=== PATIENT | male | born 1960 | race Caucasian/White ===

== ENCOUNTER 2017-12-15 11:10 | Outpatient (RCR) | payer OTHER, SELFPAY ==
--- NOTE | 2017-12-15 11:54 | PT.OIE ---
Current Diagnoses Other specified enthesopathies of left lower limb, excluding foot (12/15/17) Past Medical History (Last Updated 12/12/17 @ 12:13 by Thi Hanson LPN) Chronic back pain (Chronic 1999) Osteoarthritis (Chronic Unknown) Shingles (Chronic 1974) Chickenpox (Resolved 1963) Foot pain (Resolved 1998) Fractures (Resolved 1998) Hemorrhoids (Resolved 2005) Skin cancer (Resolved 2004) Tuberculosis (Resolved 2003) Herpes (Inactive 1975) Past Surgical History History of hip replacement Status post knee surgery Provider Visit Care Team Role Provider Type Manuel Watson MD Family Provider Physician Primary Care Provider Specialty: Family Practice Address: [address] [place] [address], [id number] Email: [email or web address] James Gallo PA-C Attending Provider Non-Staff Specialty: Nursing Address: [address] [place] [address], [id number] Email: Physical Therapy Initial Evaluation PT-OP-A Visit Information Start: 12/15/17 11:35 Freq: Status: Active Protocol: Document 12/15/17 11:15 DCW (Rec: 12/15/17 11:54 [facility] [id number]) Out-Patient Physical Therapy Visit Information Visit Information Visit Type Initial Evaluation Visit Start Time 11:15 Visit Stop Time 11:40 Total Visit Minutes 25 Visit Number 1 Number of ABRASIVE WORKER Visits 0 Evaluation Information Evaluation Date 12/15/17 PT-OP-B Current Condition Start: 12/15/17 11:35 Freq: Status: Active Protocol: Document 12/15/17 11:15 DCW (Rec: 12/15/17 11:54 [facility] [id number]) Current Condition History of Current Condition Onset Date s/p 6 weeks Current Complaints Mild hip flexor pain History of Current Condition Pt reports after spending September in [place], he returned at the beginning of October. Shortly after coming back to [place], he reports he had a flare-up, and was experiencing severe 6-7/10 pain in his anterior left hip. Pt reports he struggled to even stand, and after washing his car one day, needed a cane to walk back. Following a doctor's appointment last week , pt was put on Meloxicam, and after taking three doses, pt notes he had a vague bad reaction, and stopped taking it. However, he notes that since that time, he has felt much better, has only been experiencing an occasional 1-2 /10 pain, and now doesn't feel he really need any physical therapy. Treatment Goals Patient/Caregiver Goals If I don't need to be here, I really rather not be here. Prior Functional Status Baseline Function- ADL's Independent Baseline Function- Mobility Independent Current Functional Impairments (Reported) Functional Limitations- ADL's None Functional Limitations- Mobility/Gait None Functional Limitations- Work/School None PT-OP-C Subjective Start: 12/15/17 11:35 Freq: Status: Active Protocol: Document 12/15/17 11:15 DCW (Rec: 12/15/17 11:54 [facility] [id number]) OP-PT Subjective Patient Comments Patient Comments I'm not sure I really need this anymore. Patient Reported Progress Improving Patient Questionnaires Lower Extremity Functional Scale LEFS Score 58/80 = 72.5% LEFS Impairment 20 to 39% Impaired (Score 48- 62) OP-PT Pain Assessment Pain Assessment Grid Paper Pain Assessment Grid Completed Yes Location Left Anterior Lateral Hip Intensity 1 Scale Used Numeric (1 - 10) Frequency Occasional PT-OP-F Manual Assessment Start: 12/15/17 11:35 Freq: Status: Active Protocol: Document 12/15/17 11:15 DCW (Rec: 12/15/17 11:54 [facility] [id number]) Manual Assessments Soft Tissue Assessment Soft Tissue Mobility Assessment Tenderness to palpation: Iliopsoas bilaterally 1/5 - Complaint of pain. No notable spasm, trigger points, or hypertonia. Joint Mobility Assessment Joint Mobility Assessment WNL PT-OP-K Range of Motion Start: 12/15/17 11:35 Freq: Status: Active Protocol: Document 12/15/17 11:15 DCW (Rec: 12/15/17 11:54 [facility] [id number]) Hip Goniometric Range of Motion Hip Measured in Degrees Left Active Hip ROM WFL Yes Testing Position Supine PT-OP-L Special Tests Start: 12/15/17 11:35 Freq: Status: Active Protocol: Document 12/15/17 11:15 DCW (Rec: 12/15/17 11:54 [facility] [id number]) Special Tests Hip Special Tests Tripod Sign Test Results Mild HS tightness Piriformis Test Results Negative BRITANY Test Results Negative Max Test Results Mild left hip flexor tightness PT-OP-M Strength Start: 12/15/17 11:35 Freq: Status: Active Protocol: Document 12/15/17 11:15 DCW (Rec: 12/15/17 11:54 [facility] [id number]) Hip Strength Hip Manual Muscle Testing Left Flexion (L2) 5 Normal Extension (S1) 5 Normal Abduction 5 Normal Adduction 5 Normal Comments Mild complaint of discomfort with resisted hip flexion PT-OP-Q Treatments Start: 12/15/17 11:35 Freq: Status: Active Protocol: Document 12/15/17 11:15 DCW (Rec: 12/15/17 11:54 [facility] [id number]) Therapeutic Exercises Supine Exercises 1 Supine Exercise Name Hip flexor stretch off plinth Side left Standing Exercises 1 Standing Exercise Name Hip flexor stretch half-kneel on plinth Side left PT-OP-T Assessment and Plan Start: 12/15/17 11:35 Freq: Status: Active Protocol: Document 12/15/17 11:15 DCW (Rec: 12/15/17 11:54 [facility] [id number]) Physical Therapy Assessment Rehab Potential Rehabilitation Potential Excellent Evaluation Complexity Number of Personal Factors/Comorbidities 1-2 Number of Body Systems Impaired 1-2 Clinical Presentation at Evaluation Stable Impairments Impairments Pain Soft Tissue Mobility Goals Two Impairment Max Test Short Term Goal (STG) Negative Max test STG Duration 12/29/17 One Impairment Pain Short Term Goal (STG) Pt to report no increased pain at work STG Duration 12/29/17 Assessment Summary Assessment Patient is currently doing very well, has no real complaints compared to last week when he saw his PCP. Pt hip ROM and MMT are grossly WNL, and pt experiences minimal pain and has no current limitations. At the moment, there is no real need for continued skilled therapy. Pt agreeable to cancel the remainder of his scheduled appointments, but will not be discharged at this time. Pt's chart will remain open for one month in case he notes worsening symptoms and would like to return. Physical Therapy Plan Frequency and Duration Frequency of Treatment 2x/Week Duration of Treatment 6 weeks Plan of Care Start Date 06/04/18 Plan of Care End Date 01/26/18 Therapeutic Interventions Therapeutic Interventions Aquatic Therapy Balance Training Home Exercise Program Joint Mobilizations Manual Therapy Soft Tissue Mobilization Therapeutic Exercises Modalities Cold Pack/Ice Massage Electric Stimulation Hot Packs Ultrasound Next Visit Focus/Plan Next Note Type Treatment Note Next Visit Plan Flexibility, US, strengthening , Pain-control as needed Please Sign and Return: I have reviewed this Plan of Care and certify that the skilled therapy services above are required to meet the patient?s needs. Physician Signature Date Printed Name and Credentials Clinical Instructor Signature Printed Name and Credentials
--- NOTE | 2017-12-15 11:55 | PT.OPPOC ---
Current Diagnoses Other specified enthesopathies of left lower limb, excluding foot (12/15/17) Provider Visit Care Team Role Provider Type Manuel Watson MD Family Provider Physician Primary Care Provider Specialty: Family Practice Address: [address] [place] [address], [address] Email: [email or web address] James Gallo PA-C Attending Provider Non-Staff Specialty: Nursing Address: [address] [place] [address], [id number] Email: Plan Of Care PT-OP-T Assessment and Plan Start: 12/15/17 11:35 Freq: Status: Active Protocol: Document 12/15/17 11:15 DCW (Rec: 12/15/17 11:54 [facility] [id number]) Physical Therapy Assessment Rehab Potential Rehabilitation Potential Excellent Evaluation Complexity Number of Personal Factors/Comorbidities 1-2 Number of Body Systems Impaired 1-2 Clinical Presentation at Evaluation Stable Impairments Impairments Pain Soft Tissue Mobility Goals Two Impairment Max Test Short Term Goal (STG) Negative Max test STG Duration 12/29/17 One Impairment Pain Short Term Goal (STG) Pt to report no increased pain at work STG Duration 12/29/17 Assessment Summary Assessment Patient is currently doing very well, has no real complaints compared to last week when he saw his PCP. Pt hip ROM and MMT are grossly WNL, and pt experiences minimal pain and has no current limitations. At the moment, there is no real need for continued skilled therapy. Pt agreeable to cancel the remainder of his scheduled appointments, but will not be discharged at this time. Pt's chart will remain open for one month in case he notes worsening symptoms and would like to return. Physical Therapy Plan Frequency and Duration Frequency of Treatment 2x/Week Duration of Treatment 6 weeks Plan of Care Start Date 12/15/17 Plan of Care End Date 01/26/18 Therapeutic Interventions Therapeutic Interventions Aquatic Therapy Balance Training Home Exercise Program Joint Mobilizations Manual Therapy Soft Tissue Mobilization Therapeutic Exercises Modalities Cold Pack/Ice Massage Electric Stimulation Hot Packs Ultrasound Next Visit Focus/Plan Next Note Type Treatment Note Next Visit Plan Flexibility, US, strengthening , Pain-control as needed Plan of Care Dates Plan of Care Start Date 12/15/17 Plan of Care End Date 01/26/18 Please Sign and Return: I have reviewed this Plan of Care and certify that the skilled therapy services above are required to meet the patient?s needs. Physician Signature Date Printed Name and Credentials Clinical Instructor Signature Printed Name and Credentials
--- NOTE | 2018-04-20 11:38 | PT.OPDS ---
Current Diagnoses Other specified enthesopathies of left lower limb, excluding foot (12/15/17) Provider Visit Care Team Role Provider Type Manuel Watson MD Family Provider Physician Primary Care Provider Specialty: Family Practice Address: [address] [place] [address], [id number] Email: [email or web address] Gallo [email or web address] Attending Provider Non-Staff Specialty: Nursing Address: [address] [place] [address], [id number] Email: Visit Number Visit Number 1 Discharge Summary PT-OP-B Current Condition Start: 12/15/17 11:35 Freq: Status: Active Protocol: Document 12/15/17 11:15 DCW (Rec: 12/15/17 11:54 DCW [id number]) Current Condition History of Current Condition Onset Date s/p 6 weeks Current Complaints Mild hip flexor pain History of Current Condition Pt reports after spending September in [place], he returned at the beginning of October. Shortly after coming back to [place], he reports he had a flare-up, and was experiencing severe 6-7/10 pain in his anterior left hip. Pt reports he struggled to even stand, and after washing his car one day, needed a cane to walk back. Following a doctor's appointment last week , pt was put on Meloxicam, and after taking three doses, pt notes he had a vague bad reaction, and stopped taking it. However, he notes that since that time, he has felt much better, has only been experiencing an occasional 1-2 /10 pain, and now doesn't feel he really need any physical therapy. Treatment Goals Patient/Caregiver Goals If I don't need to be here, I really rather not be here. Prior Functional Status Baseline Function- ADL's Independent Baseline Function- Mobility Independent Current Functional Impairments (Reported) Functional Limitations- ADL's None Functional Limitations- Mobility/Gait None Functional Limitations- Work/School None PT-OP-C Subjective Start: 12/15/17 11:35 Freq: Status: Active Protocol: Document 12/15/17 11:15 DCW (Rec: 12/15/17 11:54 DCW [id number]) OP-PT Subjective Patient Comments Patient Comments I'm not sure I really need this anymore. Patient Reported Progress Improving Patient Questionnaires Lower Extremity Functional Scale LEFS Score 58/80 = 72.5% LEFS Impairment 20 to 39% Impaired (Score 48- 62) OP-PT Pain Assessment Pain Assessment Grid Paper Pain Assessment Grid Completed Yes Location Left Anterior Lateral Hip Intensity 1 Scale Used Numeric (1 - 10) Frequency Occasional PT-OP-F Manual Assessment Start: 12/15/17 11:35 Freq: Status: Active Protocol: Document 12/15/17 11:15 DCW (Rec: 12/15/17 11:54 DCW [id number]) Manual Assessments Soft Tissue Assessment Soft Tissue Mobility Assessment Tenderness to palpation: Iliopsoas bilaterally 1/5 - Complaint of pain. No noteable spasm, triggerpoints, or hypertonia. Joint Mobility Assessment Joint Mobility Assessment WNL PT-OP-K Range of Motion Start: 12/15/17 11:35 Freq: Status: Active Protocol: Document 12/15/17 11:15 DCW (Rec: 12/15/17 11:54 DCW [id number]) Hip Goniometric Range of Motion Hip Measured in Degrees Left Active Hip ROM WFL Yes Testing Position Supine PT-OP-L Special Tests Start: 12/15/17 11:35 Freq: Status: Active Protocol: Document 12/15/17 11:15 DCW (Rec: 12/15/17 11:54 DCW [id number]) Special Tests Hip Special Tests Tripod Sign Test Results Mild HS tightness Piriformis Test Results Negative BRITANY Test Results Negative Max Test Results Mild left hip flexor tightness PT-OP-M Strength Start: 12/15/17 11:35 Freq: Status: Active Protocol: Document 12/15/17 11:15 DCW (Rec: 12/15/17 11:54 DCW [id number]) Hip Strength Hip Manual Muscle Testing Left Flexion (L2) 5 Normal Extension (S1) 5 Normal Abduction 5 Normal Adduction 5 Normal Comments Mild complaint of discomfort with resisted hip flexion PT-OP-T Assessment and Plan Start: 12/15/17 11:35 Freq: Status: Active Protocol: Document 04/20/18 11:36 DCW (Rec: 04/20/18 11:38 DCW [id number]) Physical Therapy Assessment Goals Two Impairment Max Test Short Term Goal (STG) Negative Max test STG Duration 12/29/17 One Impairment Pain Short Term Goal (STG) Pt to report no increased pain at work STG Duration 12/29/17 Physical Therapy Plan Discharge Physical Therapy Discharge Reasons No Longer Attending PT Discharge Comments Pt was doing very well at ths time of his evaluation, but his chart was left open if he happened to decline in function again. Pt was instructed to schedule an appointment if he required any further assistance. Pt has now, however, not been seen in more than four months, and will be discharged from skilled therapy
== END 2018-04-23 15:16 ==
LOC: PHYS 11:10
PROVIDERS: Family Provider Family Medicine; PCP Family Medicine; Visit Provider Physician Assistant Surgical
DX: M76.892 Other specified enthesopathies of left lower limb, excluding foot (principal)
CPT/HCPCS: 97161

== ENCOUNTER 2018-04-20 06:25 | Day surgery (SDC) | payer OTHER, SELFPAY ==
--- NOTE | 2018-04-20 | PATH_ITS ---
[facility] Accession Number: [id number] . 01 Material submitted: . PART A: SIGMOID COLON POLYPS X3 AT 20 PART B: TRANSVERSE COLON POLYP PART C: RECTAL POLYP AT 10 X2 . 01 Clinical history: . B: PREVIOUSLY INKED AT 58 . 02 Diagnosis: A. 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 Hyperplastic polyp involving single biopsy fragment. . B. Biopsy Transverse Colon Polyp: Serrated polyp, favor hyperplastic, involving all three biopsy specimens. . C. Biopsy Rectal Polyp at 10 cm: Hyperplastic polyp involving two biopsy fragments. [facility]/04/21/2018 . 02 Electronically signed: . Archie Roberts MD, Pathologist NPI- [id number] . 01 Gross description: . Received three formalin-filled containers each labeled with the patient's name. . A. In a container labeled polyps x3 sigmoid at 20 are three 0.2 to 0.6 cm portions of tissue. Entirely submitted in cassette A. B. In a container labeled transverse colon polyp previously at 58 inked are three 0.1 to 0.4 cm portions of tissue. Entirely submitted in cassette B. C. In a container labeled rectal polyp at 10 x2 are three 0.2 to 0.4 cm portions of tissue. Entirely submitted in cassette C. ([facility]:[id number]) /[facility] . 02 Pathologist provided ICD-10: D12.5 . 02 CPT . 784105, [id number], [id number] Specimen Comment: A duplicate report has been generated due to demographic updates. Performed at: [address], [place], [place] [id number] MD Randy Johnson MD Phone: [phone] Performed at: 02 [facility] [address] [place] [id number] MD Mike Guerra MD Phone: [phone]
[2018-04-20 07:08] VITALS: BP 142/96; PULSE 92; RESP 16; TEMP 36.8; O2SAT 98; BMI 29.6
[2018-04-20] MEDS: SODIUM CHLORIDE 0.9% 1,000 ML 200 ML IV (07:14)
--- NOTE | 2018-04-20 07:52 | PM.HP.1 ---
History of Present Illness Date Patient Seen: 04/20/18 Time Patient Seen: 07:52 Chief complaint: [id number] COLONOSCOPY Narrative: 58-year-old male who presents for colorectal screening. Has been 10 years since his last colonoscopy. He reports the findings were normal at that time. On further history today he denies any recent gastrointestinal symptoms. No nausea, vomiting, abdominal pain, loss of appetite, unexplained weight loss, change in bowel habits, diarrhea, constipation, melena, hematochezia, or bright red blood per rectum. Patient History Medical History Chronic back pain (Chronic 1999) Osteoarthritis (Chronic Unknown) Shingles (Chronic 1974) Chickenpox (Resolved 1963) Foot pain (Resolved 1998) Fractures (Resolved 1998) Hemorrhoids (Resolved 2005) Skin cancer (Resolved 2004) Tuberculosis (Resolved 2003) Herpes (Inactive 1975) Surgical History History of colonoscopy (Acute) History of hip replacement Status post knee surgery Family & Social History Family History: Reviewed 04/20/18 by Dionisio Decker MD Social History: household members friend(s) Tobacco & Substance use: Smoking Status Never smoker Meds Home Medications Medication Instructions Recorded Confirmed Type hydrocodone 10 mg-acetaminophen See Label Instructions PO TID PRN 03/19/18 04/20/18 Rx 325 mg tablet #50 tab Allergies Allergy/AdvReac Type Severity Reaction Status Date / Time meloxicam Allergy Severe bloody Verified 12/15/17 16:31 stool No Known Allergies Allergy Uncoded 10/22/17 12:30 Review of Systems Review of Systems All systems reviewed & are unremarkable except as noted in HPI and below Exam Vital Signs (past 8 hours): - 04/20/18 07:08 Temperature 98.2 F Pulse Rate 92 H Respiratory Rate 16 Blood Pressure 142/96 H Pulse Oximetry 98 Oxygen Delivery Method Room Air Narrative Exam Narrative: Well-nourished well-developed male in no acute distress. Alert oriented x3. Sclera nonicteric Chest clear auscultation bilaterally with regular rate and rhythm. No murmurs, gallops, rubs Abdomen soft, nondistended, nontender, no masses Extremities show no clubbing or cyanosis Objective Labs Labs: No recent laboratory or radiographic studies for review Assessment & Plan Plan: Assessment/Plan Narrative: 58-year-old male requiring colorectal screening since has been 10 years from his last examination. Colonoscopy is currently recommended. Technical details of the procedure were discussed. Risks, benefits, alternatives were explained. Risks including but not limited to sedation, aspiration, bleeding, pain, missed lesion, incomplete examination, need for further radiographic studies, colonic perforation, need for major abdominal surgery, and all attendant risks of major surgery were discussed in detail. All questions were answered to his satisfaction, and he voiced understanding. Consent was placed on the chart. We will proceed as above.
--- NOTE | 2018-04-20 07:55 | P.HP_ITS ---
History of Present Illness Date Patient Seen: 04/20/18 Time Patient Seen: 07:52 Chief complaint: [id number] COLONOSCOPY Narrative: 58-year-old male who presents for colorectal screening. Has been 10 years since his last colonoscopy. He reports the findings were normal at that time. On further history today he denies any recent gastrointestinal symptoms. No nausea, vomiting, abdominal pain, loss of appetite, unexplained weight loss , change in bowel habits, diarrhea, constipation, melena, hematochezia, or bright red blood per rectum. Patient History Medical History Chronic back pain (Chronic 1999) Osteoarthritis (Chronic Unknown) Shingles (Chronic 1974) Chickenpox (Resolved 1963) Foot pain (Resolved 1998) Fractures (Resolved 1998) Hemorrhoids (Resolved 2005) Skin cancer (Resolved 2004) Tuberculosis (Resolved 2003) Herpes (Inactive 1975) Surgical History History of colonoscopy (Acute) History of hip replacement Status post knee surgery Family & Social History Family History: Reviewed 04/20/18 by Dionisio Decker MD Social History: household members friend(s) Tobacco & Substance use: Smoking Status Never smoker Meds Home Medications Medication Instructions Recorded Confirmed Type hydrocodone 10 mg-acetaminophen See Label Instructions PO TID PRN 03/19/1804/20 Rx 325 mg tablet #50 tab Allergies Allergy/AdvReac Type Severity Reaction Status Date / Time meloxicam Allergy Severe bloody Verified 12/15/17 16:31 stool No Known Allergies Allergy Uncoded 10/22/17 12:30 Review of Systems Review of Systems All systems reviewed & are unremarkable except as noted in HPI and below Exam Vital Signs (past 8 hours): - 04/20/18 07:08 Temperature 98.2 F Pulse Rate 92 H Respiratory Rate 16 Blood Pressure 142/96 H Pulse Oximetry 98 Oxygen Delivery Method Room Air Narrative Exam Narrative: Well-nourished well-developed male in no acute distress. Alert oriented x3. Sclera nonicteric Chest clear auscultation bilaterally with regular rate and rhythm. No murmurs, gallops, rubs Abdomen soft, nondistended, nontender, no masses Extremities show no clubbing or cyanosis Objective Labs Labs: No recent laboratory or radiographic studies for review Assessment & Plan Plan: Assessment/Plan Narrative: 58-year-old male requiring colorectal screening since has been 10 years from his last examination. Colonoscopy is currently recommended. Technical details of the procedure were discussed. Risks, benefits, alternatives were explained. Risks including but not limited to sedation, aspiration, bleeding, pain, missed lesion, incomplete examination, need for further radiographic studies, colonic perforation, need for major abdominal surgery, and all attendant risks of major surgery were discussed in detail. All questions were answered to his satisfaction, and he voiced understanding. Consent was placed on the chart. We will proceed as above.
--- NOTE | 2018-04-20 07:56 | PM.PREOP ---
Pre-operative Note Interval Note Pre-op Check: Yes History & Physical Reviewed by Physician, Yes Exam Performed and Yes History & Physical exam performed today by Physician Changes: No H&P completed within 30 days and has changed as indicated here:: Patient seen and examined today. History physical examination documented and placed on the chart today. Proceed with colonoscopy today as planned. ASA Class (for procedural sedation): I
[2018-04-20] MEDS: MIDAZOLAM 5 MG/5 ML VIAL IV (08:17)
[2018-04-20] MEDS: fentaNYL 250 MCG/5 ML INJ IV (08:18)
--- NOTE | 2018-04-20 08:29 | PM.OP.ENDO ---
Operative Date/Time/Diagnoses Date of procedure: 04/20/18 Time of procedure: 08:29 Pre-op diagnosis: Colorectal screening Post-op diagnosis: other (Diverticulosis and multiple colon polyps) Procedure & Clinicians Study performed: 1. Sedation per surgeon 2. Colonoscopy with hot snare polypectomies and cold forceps polypectomies Same procedure as scheduled: Yes Indications: 58-year-old male who presents for colorectal screening. He states that his been 10 years from his last examination. He gave a history that he had had no prior colon polyps removed. He is currently asymptomatic. He requires colorectal surveillance however. Colonoscopy is once again recommended. Surgeon: Dionisio Decker Procedure Notes SCOAP/Timeout: Yes Procedure in detail: After obtaining informed consent, the patient was brought to the GI suite and placed in the left lateral decubitus position on the examination table. After placement of appropriate monitors, the patient was given incremental doses of Versed and Fentanyl until an appropriate level of sedation was achieved. A time out was held per SCOAP protocol. A digital rectal examination was performed and did not reveal any masses or obstructing lesions. The colonoscope was gently passed into the patient's anus and the entire colon navigated to the level of the cecum with minimal difficulty. Once in the cecum, the scope was withdrawn being sure to go before and beyond all mucosal folds and prominences and get an excellent examination. The findings are noted above. At the level of the rectal vault, the scope was retroflexed and the internal anal canal was examined. The scope was straightened and air aspirated from the colon. The instrument was removed from the patient's body and the procedure was concluded. The patient was allowed to awaken from sedation without difficulty and taken to the post-anesthesia care unit in good condition. Scope withdrawal time: 10:23 min Sedation minutes: 31 Findings: diverticulosis and polyp (Patient had evidence of prior polypectomy and transverse colon where Nathaly ink tattoo was identified) Specimen(s): other (1. Sigmoid colon polyps x3 at 20 cm 2. Transverse colon polyp previously inked at 60 cm 3. Rectal polyps x2 at 10 cm) Complications: none Recommendations: Colonscopy in 5 years, High fiber diet and Will call with biopsy results Plan for aftercare: 1. Discharge home Follow up: as needed Disposition: PACU
[2018-04-20 08:34] VITALS: BP 127/85; PULSE 74; RESP 16; TEMP 36.2; O2SAT 95
[2018-04-20 08:44] VITALS: BP 127/87; PULSE 84; RESP 15; O2SAT 97
[2018-04-20 09:01] VITALS: BP 114/76; PULSE 79; RESP 15; TEMP 36.2; O2SAT 98
== END 2018-04-20 09:10 | disposition home or self-care (01) ==
PROVIDERS: Family Provider Family Medicine; PCP Family Medicine; Visit Provider Surgery
PROC: 0DJD8ZZ Inspection of Lower Intestinal Tract, Via Natural or Artificial Opening Endoscopic (ICD-10-PCS; CPT 45378; principal; 2018-04-20 07:45)
DX: Z12.11 Encounter for screening for malignant neoplasm of colon (principal); K57.30 Diverticulosis of large intestine without perforation or abscess without bleeding; D12.5 Benign neoplasm of sigmoid colon; K62.1 Rectal polyp; D12.3 Benign neoplasm of transverse colon
CPT/HCPCS: 45385; 45380; 99152; 99153; J2250; J3010